=== PATIENT | male | born 1970 | race Caucasian/White ===

== ENCOUNTER 2020-10-03 08:20 | Outpatient (CLI) | payer OTHER, SELFPAY ==
--- NOTE | ~2020-10-03 | XR_ITS ---
XR chest 2V DATE: 10/03/2020 10:39 INDICATION: Cough, shortness of breath. Smoker. TECHNIQUE: PA and lateral views COMPARISON: None FINDINGS: Normal heart size. No hilar or mediastinal enlargement. Bilateral hyperinflation. No pulmonary infiltrate or consolidation, pleural effusion or pulmonary vas cular congestion or pneumothorax. IMPRESSION: Bilateral hyperinflation; no active cardiopulmonary disease Reviewed, dictated and finalized at location A. UCTION RECORDER
--- NOTE | 2020-10-08 16:21 | WPDPFTINT ---
PFT Interpretation PFT Interpretation: DOS: 10/03/2020 REQUESTING: Stan Aguilera PA-C REASON FOR TESTING: Asthma, smoker PULMONARY FUNCTION TESTS Results are reproducible. Spirometry: FEV1 is 56%, moderately reduced, 1.84 L. FVC is 88% predicted, normal. Decreased FEV1/FVC consistent with airflow obstruction. There is a 31% increase in FEV1 with bronchodilator administration, and this total amount is greater than 200 ml. Lung volumes: TLC 118%, upper limits of normal. RV is 180% consistent with severe air trapping. Increased airway resistance 316%. Diffusion: DLCO 100%, normal. Flow volume loop: Scooping of the expiratory limb. IMPRESSION: Moderate obstructive ventilatory impairment with good response to bronchodilator, severe air tapping, normal diffusion. Lashell Johns MD
== END 2020-10-03 08:21 | disposition home or self-care (01) ==
PROVIDERS: PCP Physician Assistant; Visit Provider Physician Assistant
DX: F17.200 Nicotine dependence, unspecified, uncomplicated (principal)
CPT/HCPCS: 71046; 94060; 94726; 94729

== ENCOUNTER 2021-06-12 11:39 | Outpatient (CLI) | payer OTHER, SELFPAY ==
--- NOTE | ~2021-06-12 | XR_ITS ---
EXAMINATION: XR chest 2V DATE: 06/12/2021 11:57 INDICATION: Cough, COPD TECHNIQUE: PA and lateral views of the chest are obtained. COMPARISON: 10/03/2020 FINDINGS: The lungs are hyperinflated but free of acute opacities. There is no pleural effusion or pn eumothorax. The cardiomediastinal silhouette is normal. There is moderate thoracic spondylosis. IMPRESSION: 1. No acute cardiopulmonary abnormality. Reviewed, dictated and finalized at location B.
== END 2021-06-12 11:40 | disposition home or self-care (01) ==
LOC: CHSLAB 11:42
PROVIDERS: PCP Physician Assistant; Visit Provider Internal Medicine Pulmonary Disease
DX: J44.9 Chronic obstructive pulmonary disease, unspecified (principal); R05 Cough; F17.200 Nicotine dependence, unspecified, uncomplicated
CPT/HCPCS: 71046

== ENCOUNTER 2023-02-16 13:14 | Emergency (ER) | payer OTHER, SELFPAY ==
--- NOTE | ~2023-02-16 | XR_ITS ---
[XR ribs LT 2V ] INDICATION: Left rib pain TECHNIQUE: Frontal projection of the upper left ribs, frontal projection of the lower left ribs, obli que projection of all the left ribs, frontal inspiratory chest x-ray for interpretation. FINDINGS: There are no displaced rib fractures identified. There are no soft tissue abnormality see n. The lungs are clear. IMPRESSION: 1:No acute displaced rib fractures. Reviewed, dictated and finalized at location B.
[2023-02-16 13:15] VITALS: BP 156/92; PULSE 90; RESP 20; TEMP 37.2; O2SAT 95
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
[2023-02-16] MEDS: KETOROLAC 30 MG/ML VIAL (*BKC) IM (13:47)
== END 2023-02-16 14:10 | disposition home or self-care (01) ==
LOC: CHSED 14:12
PROVIDERS: Emergency Provider Emergency Medicine
DX: S20.212A Contusion of left front wall of thorax, initial encounter (principal); J44.9 Chronic obstructive pulmonary disease, unspecified; F17.210 Nicotine dependence, cigarettes, uncomplicated; W01.0XXA Fall on same level from slipping, tripping and stumbling without subsequent striking against object, initial encounter
CPT/HCPCS: 71100; 96372; 99283; J1885